=== PATIENT | male | born 1985 | race Caucasian/White ===

== ENCOUNTER 2017-09-23 04:36 | Emergency (ER) | payer OTHER, SELFPAY ==
[2017-09-23 04:43] VITALS: PULSE 58; RESP 20; TEMP 36.6; O2SAT 100; BMI 39.0
--- NOTE | 2017-09-23 04:48 | CT_ITS ---
CT abdomen pelvis wo con CLINICAL INDICATION: Right flank pain ITS.REASON: flank pain ORDERING PHYSICIAN: Abilio Ramos MD PATIENT AGE: 32 years COMPARISON: None TECHNIQUE: Axial images obtained with sagittal and coronal reformats. PROCEDURE: Oral Contrast: None IV Contrast: None . FINDINGS: Lung bases are clear. Fatty liver infiltration. The spleen, adrenal glands, pancreas, and gallbladder have an unremarkable unenhanced CT appearance. A 3 mm obstructing ureteral stone is present on the right at the region of the pelvic inlet 6 cm proximal to the ureterovesical junction. Since causing mild right-sided hydronephrosis and hydroureter. There is mild stranding of the right. Ureteral fat. There is a 3 mm nonobstructing stone in the lower pole the right kidney. There is a mild amount retained colonic feces in the right colon. No evidence of appendicitis or diverticulitis or intestinal obstruction or free air. No pelvic mass or abnormal fluid collection. No acute bony anomalies. IMPRESSION: 1. 3 to 4 mm obstructing right ureteral stone at the pelvic inlet in the distal one third of the right ureter with right nephrolithiasis. 2. Fatty liver Lower thorax: No acute finding ABDOMEN: Liver: No masses or biliary dilatation. Gallbladder: Nondistended. No radio opaque stones. Pancreas: No masses or peripancreatic fluid collections. Spleen: Unremarkable. Adrenals: Unremarkable Kidneys/ureters: No masses. No renal calculi. No hydronephrosis. No perinephric fluid collections. No ureteral dilatation or obvious ureteral calculi. Stomach bowel: Nondistended. No obvious mass or thickening. Appendix: No evidence of appendicitis. PELVIS: Reproductive: Unremarkable Bladder: Nondistended. No obvious stones or masses. ABDOMEN & PELVIS: Peritoneum: No abnormal fluid collections. No obvious inflammatory changes. No free air. Lymph nodes: No enlarged lymph nodes apparent. Vasculature: No evidence of abdominal aortic aneurysm. No retroperitoneal hemorrhage evident. Bones: No acute fracture IMPRESSION: Negative, no acute intra-abdominal or pelvic pathology apparent
[2017-09-23 06:17] LABS: Microscopic, Urine URINE MICROSCOPIC (MICROSCOPIC)
[2017-09-23 06:19] LABS: Appearance,Urine CLOUDY (Clear); Basophils # 0.1 K/mm3 (0-0.2); Basophils % 0.4 % (0.1-2.0); Bilirubin,Urine Negative (Negative); Blood, Urine LARGE (Negative); Color,Urine YELLOW (Yellow); Eosinophils % 0.1 % (0.1-12.0); Glucose,Urine (UA) Negative (Negative); Hemoglobin 14.6 g/dL (14.1-18.0); Ketones,Urine Negative (Negative); Leukocyte Esterase,Urine Negative (Negative); Lymphocytes # 1.6 K/mm3 (0.7-4.5); Mean Corpuscular HGB Conc 33.2 g/dL (31.8-35.4); Mean Corpuscular Hemoglobin 29.9 pg (27.0-31.2); Mean Corpuscular Volume 89.9 fl (80-94); Monocytes # 0.5 K/mm3 (0.1-1.0); Neutrophils # 11.2 K/mm3 (1.8-7.8); Neutrophils % 83.6 % (37.0-80.0); Nitrate,Urine Negative (Negative); Platelet Count 387 K/mm3 (142-424); Protein,Urine TRACE (Negative); Red Cell Distribution Width 13.2 % (11.5-17.5); Specific Gravity, Urine >= 1.030 (1.005-1.030); Urobilinogen,Urine 0.2 EU/dl (0.2); White Blood Count 13.4 K/mm3 (4.8-10.8)
[2017-09-23 06:25] LABS: Bacteria,Urine 3+ /lpf; RBC,Urine TNTC #/hpf (0-3); Squamous Epithelial Cell,Urine Occasional #/hpf (0-5)
[2017-09-23 06:30] LABS: Alanine Aminotransferase 61 U/L (12-78); Albumin Level 3.8 gm/dL (3.4-5.0); Alkaline Phosphatase 87 U/L (46-116); Amylase 37 U/L (25-125); Anion Gap 15.7 mEq/L (5-15); Aspartate Amino Transferase 19 U/L (15-37); Bilirubin,Total 0.3 mg/dL (0.2-1.0); Blood Urea Nitrogen 11 mg/dL (7-18); Calcium 8.5 mg/dL (8.5-10.1); Carbon Dioxide 24 mmol/L (21.0-32.0); Chloride 102 mmol/L (98-107); Creatinine Clearance Estimated 175 mL/min (0-300); Creatinine,Serum 1.09 mg/dL (0.70-1.30); Estimated Glomerular Filt Rate 78 ml/min (>60); GFR (African American) 95 ML/MIN (>60); Globulin 3.7 gm/dl (1.3-3.2); Glucose 142 mg/dL (74-106); Lipase 129 u/L (73-393); Potassium 3.7 mmoL/L (3.5-5.1); Sodium 138 mmol/L (136-145); Total Protein,Serum 7.5 gm/dL (6.4-8.2)
--- NOTE | 2017-09-23 06:35 | [facility].EDBACK ---
ED Disposition Clinical Impression: Renal colic, Kidney stone on right side Disposition: Home, Self-Care Condition on Discharge: Good Instructions: DI for Low Back Pain Additional Instructions: Please drink plenty of fluids take the pain medications as directed, follow-up with 1 of the local neurologists (Dr. Rankin with Dr. Addison) within the next couple of days. Prescriptions: Hydrocodone/Acetaminophen [Lortab 10/325mg tablet] 1 tab PO Q6HP PRN #8 tab PRN Reason: Moderate Pain Tamsulosin HCl [Flomax 0.4mg capsule] 0.4 mg PO DAILY #30 cap.er.24h Referrals: Romulo Addison MD [Physician] - Alvaro Rankin MD [Physician] - Time of Disposition: 06:35 - Critical Care Critical Care Time: No Attestation: On 09/23/17, the high probability of a clinically significant, sudden or life threatening deterioration of the following system(s) required my full and direct attention, intervention and personal management. The time I documented below is in addition to time spent performing reported procedures but includes the following listed in this critical care notation. Medical Decision Making - Medical Records Medical records reviewed: Yes: I reviewed the patient's medical records. Vital Signs: 09/23/17 04:43 Temperature 98 F Temperature Source Oral Pulse Rate [Brachial] 58 L Respiratory Rate 20 02 Sat by Pulse Oximetry 100 Oxygen Delivery Method Room Air - Lab Data Lab results reviewed: Yes: I reviewed the patient's lab results. Lab Results 09/23/17 05:00: Urine Color Yellow, Urine Appearance Cloudy, Urine pH 6.0, Ur Specific [place] >= 1.030, Urine Protein Trace, Urine Glucose (UA) Negative, Urine Ketones Negative, Urine Blood Large, Urine Nitrate Negative, Urine Bilirubin Negative, Urine Urobilinogen 0.2, Ur Leukocyte Esterase Negative, Urine RBC Tntc, Urine WBC 10-20, Ur Squamous Epith Cells Occasional, Urine Bacteria 3+ 09/23/17 05:00: WBC 13.4 H, RBC 4.90, Hgb 14.6, Hct 44.0, MCV 89.9, MCH 29.9, MCHC 33.2, RDW 13.2, Plt Count 387, MPV 8.0, Neut % (Auto) 83.6 H, Lymph % (Auto) 12.0, [place] % (Auto) 4.0, Eos % (Auto) 0.1, Baso % (Auto) 0.4, Neut # (Auto) 11.2 H, Lymph # (Auto) 1.6, [place] # (Auto) 0.5, Eos # (Auto) 0.0, Baso # (Auto) 0.1 09/23/17 05:00: Sodium 138, Potassium 3.7, Chloride 102, Carbon Dioxide 24, Anion Gap 15.7 H, BUN 11, Creatinine 1.09, Estimated Creat Clear 175, Estimated GFR 78, Est GFR ( Amer) 95, Glucose 142 H, Calcium 8.5, Total Bilirubin 0.3, AST 19, ALT 61, Alkaline Phosphatase 87, Total Protein 7.5, Albumin 3.8, Globulin 3.7 H, Albumin/Globulin Ratio 1.0 L, Amylase 37, Lipase 129 Result diagrams: 09/23/17 05:00 09/23/17 05:00 Orders (Tests/Meds): ED MEDICATIONS Discontinued Medications Generic Name Dose Route Start Last Admin Trade Name Genaroq PRN Reason Stop Dose Admin Hydromorphone HCl 1 mg 09/23/17 04:48 09/23/17 04:57 Dilaudid 2mg/Ml Syringe IV 09/23/17 04:49 1 mg ONCE ONE Administration Lactated Ringer's 1,000 mls @ 999 mls/hr 09/23/17 05:00 09/23/17 04:57 Lactated Ringer's 1000 Ml Bag IV 09/23/17 06:00 999 mls/hr .Q1H1M CHRISTOPHER Administration Ketorolac Tromethamine 30 mg 09/23/17 04:47 09/23/17 04:57 Toradol 30mg/Ml Vial IV 09/23/17 04:48 30 mg ONCE ONE Administration Ondansetron HCl 4 mg 09/23/17 04:47 09/23/17 04:57 Zofran 4mg/2ml Vial IV 09/23/17 04:48 4 mg ONCE ONE Administration - CT Data CT Scan: Abdomen, Pelvis Time Received: 06:[address] Reviewed: Yes: I have viewed the radiologist's interpretation Findings Narrative: Right UVJ junction calculus, 4 mm, with mild hydronephrosis - David Inquiry Pt receiving controlled substance: No - Reevaluation(s) Time: 06:20 Reevaluation #1: Upon reevaluation patient appears medically stable, no acute distress, advised of results obtained, need to increase fluid intake and take the pain medications prescribed as directed. Patient is to make a follow-up appointm
--- NOTE | 2017-09-23 06:38 | ED_ITS ---
ED Disposition Clinical Impression: Renal colic, Kidney stone on right side Disposition: Home, Self-Care Condition on Discharge: Good Instructions: DI for Low Back Pain Additional Instructions: Please drink plenty of fluids take the pain medications as directed, follow-up with 1 of the local neurologists (Dr. Rankin with Dr. Addison) within the next couple of days. Prescriptions: Hydrocodone/Acetaminophen [Lortab 10/325mg tablet] 1 tab PO Q6HP PRN #8 tab PRN Reason: Moderate Pain Tamsulosin HCl [Flomax 0.4mg capsule] 0.4 mg PO DAILY #30 cap.er.24h Referrals: Romulo Addison MD [Physician] - Alvaro Rankin MD [Physician] - Time of Disposition: 06:35 - Critical Care Critical Care Time: No Attestation: On 09/23/17, the high probability of a clinically significant, sudden or life threatening deterioration of the following system(s) required my full and direct attention, intervention and personal management. The time I documented below is in addition to time spent performing reported procedures but includes the following listed in this critical care notation. Medical Decision Making - Medical Records Medical records reviewed: Yes: I reviewed the patient's medical records. Vital Signs: 09/23/17 04:43 Temperature 98 F Temperature Source Oral Pulse Rate [Brachial] 58 L Respiratory Rate 20 02 Sat by Pulse Oximetry 100 Oxygen Delivery Method Room Air - Lab Data Lab results reviewed: Yes: I reviewed the patient's lab results. Lab Results 09/23/17 05:00: Urine Color Yellow, Urine Appearance Cloudy, Urine pH 6.0, Ur Specific [place] >= 1.030, Urine Protein Trace, Urine Glucose (UA) Negative, Urine Ketones Negative, Urine Blood Large, Urine Nitrate Negative, Urine Bilirubin Negative, Urine Urobilinogen 0.2, Ur Leukocyte Esterase Negative, Urine RBC Tntc, Urine WBC 10-20, Ur Squamous Epith Cells Occasional, Urine Bacteria 3+ 09/23/17 05:00: WBC 13.4 H, RBC 4.90, Hgb 14.6, Hct 44.0, MCV 89.9, MCH 29.9, MCHC 33.2, RDW 13.2, Plt Count 387, MPV 8.0, Neut % (Auto) 83.6 H, Lymph % (Auto ) 12.0, [place] % (Auto) 4.0, Eos % (Auto) 0.1, Baso % (Auto) 0.4, Neut # (Auto) 11.2 H, Lymph # (Auto) 1.6, [place] # (Auto) 0.5, Eos # (Auto) 0.0, Baso # (Auto) 0.1 09/23/17 05:00: Sodium 138, Potassium 3.7, Chloride 102, Carbon Dioxide 24, Anion Gap 15.7 H, BUN 11, Creatinine 1.09, Estimated Creat Clear 175, Estimated GFR 78, Est GFR ( Amer) 95, Glucose 142 H, Calcium 8.5, Total Bilirubin 0.3, AST 19, ALT 61, Alkaline Phosphatase 87, Total Protein 7.5, Albumin 3.8, Globulin 3.7 H, Albumin/Globulin Ratio 1.0 L, Amylase 37, Lipase 129 Result diagrams: 09/23/17 05:00 09/23/17 05:00 Orders (Tests/Meds): ED MEDICATIONS Discontinued Medications Generic Name Dose Route Start Last Admin Trade Name Genaroq PRN Reason Stop Dose Admin Hydromorphone HCl 1 mg 09/23/17 04:48 09/23/17 04:57 Dilaudid 2mg/Ml Syringe IV 09/23/17 04:49 1 mg ONCE ONE Administration Lactated Ringer's 1,000 mls @ 999 mls/hr 09/23/17 05:00 09/23/17 04:57 Lactated Ringer's 1000 Ml Bag IV 09/23/17 06:00 999 mls/hr .Q1H1M CHRISTOPHER Administration Ketorolac Tromethamine 30 mg 09/23/17 04:47 09/23/17 04:57 Toradol 30mg/Ml Vial IV 09/23/17 04:48 30 mg ONCE ONE Administration Ondansetron HCl 4 mg 09/23/17 04:47 09/23/17 04:57 Zofran 4mg/2ml Vial IV 09/23/17 04:48 4 mg ONCE ONE Administration
== END 2017-09-23 06:49 | disposition home or self-care (01) ==
PROVIDERS: Emergency Provider Emergency Medicine; PCP Nurse Practitioner Family
DX: N13.2 Hydronephrosis with renal and ureteral calculous obstruction (principal)
CPT/HCPCS: 74176; 80053; 81001; 82150; 83690; 85025; 87086; 96360; 96365; 96374; 96375; 99283; J2405

== ENCOUNTER → 2017-09-29 10:32 | Outpatient (CLI) | payer OTHER, SELFPAY ==
--- NOTE | 2017-09-29 10:39 | XR_ITS ---
XR [facility]UB CLINICAL INDICATION: Follow-up kidney stone ITS.REASON: KIDNEY STONE ORDERING PHYSICIAN: Alvaro Rankin MD PATIENT AGE: 32 years COMPARISON: CT scan 09/23/2017 FINDINGS: Previously noted stone at the pelvic inlet on the right is no longer apparent. No obvious renal or ureteral calculi. Unremarkable bowel gas pattern IMPRESSION: Previously noted right ureteral stone no longer apparent
[2017-10-11 14:15] LABS: Size 4x3x3 mm (.)
[2017-10-12 18:15] LABS: Specimen Type Comment: (.)
== END ==
PROVIDERS: PCP Internal Medicine Adolescent Medicine; Visit Provider Urology
DX: N20.0 Calculus of kidney (principal)
CPT/HCPCS: 74018; 82370

== ENCOUNTER → 2017-12-21 05:02 | Outpatient (CLI) | payer OTHER, SELFPAY ==
[2017-12-21 06:41] LABS: Basophils # 0.1 K/mm3 (0-0.2); Basophils % 0.6 % (0.1-2.0); Eosinophils # 0.1 K/mm3 (0.0-0.4); Eosinophils % 1.2 % (0.1-12.0); Hematocrit 46.7 % (42.0-52.0); Hemoglobin 15.6 g/dL (14.1-18.0); Lymphocytes # 2.8 K/mm3 (0.7-4.5); Lymphocytes % 36.1 K/mm3 (10-50); Mean Corpuscular HGB Conc 33.3 g/dL (31.8-35.4); Mean Corpuscular Hemoglobin 30.5 pg (27.0-31.2); Mean Corpuscular Volume 91.5 fl (80-94); Mean Platelet Volume 7.6 fl (7.4-10.4); Monocytes # 0.5 K/mm3 (0.1-1.0); Monocytes % 6.7 % (1.7-9.3); Neutrophils # 4.2 K/mm3 (1.8-7.8); Neutrophils % 55.4 % (37.0-80.0); Platelet Count 346 K/mm3 (142-424); Red Blood Count 5.11 M/mm3 (4.60-6.20); Red Cell Distribution Width 13.6 % (11.5-17.5); White Blood Count 7.7 K/mm3 (4.8-10.8)
[2017-12-21 07:46] LABS: Alanine Aminotransferase 86 U/L (12-78); Albumin Level 4.1 gm/dL (3.4-5.0); Albumin/Globulin Ratio 1.2 (1.1-1.8); Alkaline Phosphatase 68 U/L (46-116); Anion Gap 13.4 mEq/L (5-15); Aspartate Amino Transferase 32 U/L (15-37); Bilirubin,Total 0.5 mg/dL (0.2-1.0); Blood Urea Nitrogen 16 mg/dL (7-18); Calcium 9.5 mg/dL (8.5-10.1); Carbon Dioxide 26 mmol/L (21.0-32.0); Chloride 103 mmol/L (98-107); Cholesterol 216 mg/dL (140-200); Estimated Glomerular Filt Rate 112 ml/min (>60); GFR (African American) 136 ML/MIN (>60); Globulin 3.4 gm/dl (1.3-3.2); Glucose 105 mg/dL (74-106); HDL Cholesterol 43 mg/dL (27-67); LDL Cholesterol 116 mg/dL (0-130); Potassium 4.4 mmoL/L (3.5-5.1); Sodium 138 mmol/L (136-145); Thyroid Stimulating Hormone 4.44 uIU/ml (0.358-3.740); Total Protein,Serum 7.5 gm/dL (6.4-8.2); Triglycerides 284 mg/dL (30-200); VLDL Cholesterol 57 mg/dL (0-40)
[2017-12-23 10:46] LABS: Testosterone,Total 210 ng/dL (264-916); Vitamin B12 306 pg/mL (232-1245); Vitamin D 25 Hydroxy 16.1 ng/mL (30.0-100.0)
== END ==
PROVIDERS: Visit Provider Internal Medicine Adolescent Medicine
DX: R53.83 Other fatigue (principal); I10 Essential (primary) hypertension
CPT/HCPCS: 36415; 80053; 80061; 82607; 82652; 84403; 84443; 85025

== ENCOUNTER → 2018-02-21 05:07 | Outpatient (CLI) | payer OTHER, SELFPAY ==
[2018-02-21 06:21] LABS: Basophils % 0.6 % (0.1-2.0); Eosinophils # 0.1 K/mm3 (0.0-0.4); Eosinophils % 1.3 % (0.1-12.0); Hematocrit 45.4 % (42.0-52.0); Hemoglobin 14.4 g/dL (14.1-18.0); Lymphocytes # 2.5 K/mm3 (0.7-4.5); Lymphocytes % 38.5 K/mm3 (10-50); Mean Corpuscular HGB Conc 31.7 g/dL (31.8-35.4); Mean Corpuscular Hemoglobin 29.3 pg (27.0-31.2); Mean Corpuscular Volume 92.2 fl (80-94); Mean Platelet Volume 7.4 fl (7.4-10.4); Monocytes # 0.4 K/mm3 (0.1-1.0); Monocytes % 6.5 % (1.7-9.3); Neutrophils # 3.4 K/mm3 (1.8-7.8); Neutrophils % 53.2 % (37.0-80.0); Platelet Count 311 K/mm3 (142-424); Red Blood Count 4.92 M/mm3 (4.60-6.20); Red Cell Distribution Width 13.4 % (11.5-17.5); White Blood Count 6.4 K/mm3 (4.8-10.8)
[2018-02-21 07:48] LABS: Alanine Aminotransferase 59 U/L (12-78); Albumin Level 3.8 gm/dL (3.4-5.0); Albumin/Globulin Ratio 1.3 (1.1-1.8); Alkaline Phosphatase 59 U/L (46-116); Anion Gap 13.6 mEq/L (5-15); Aspartate Amino Transferase 21 U/L (15-37); Bilirubin,Total 0.3 mg/dL (0.2-1.0); Blood Urea Nitrogen 14 mg/dL (7-18); Calcium 9.1 mg/dL (8.5-10.1); Carbon Dioxide 27 mmol/L (21.0-32.0); Chloride 104 mmol/L (98-107); Chol/HDL Ratio 4.9 (1-3.5); Cholesterol 204 mg/dL (140-200); Creatinine,Serum 0.93 mg/dL (0.70-1.30); Estimated Glomerular Filt Rate 94 ml/min (>60); GFR (African American) 114 ML/MIN (>60); Glucose 109 mg/dL (74-106); HDL Cholesterol 42 mg/dL (27-67); LDL Cholesterol 126 mg/dL (0-130); Potassium 4.6 mmoL/L (3.5-5.1); Sodium 140 mmol/L (136-145); Thyroid Stimulating Hormone 5.39 uIU/ml (0.358-3.740); Total Protein,Serum 6.8 gm/dL (6.4-8.2); Triglycerides 182 mg/dL (30-200); VLDL Cholesterol 36 mg/dL (0-40)
[2018-02-22 09:18] LABS: Hep A Ab, IgM Negative (Negative); Hepatitis B Core Antibody IgM Negative (Negative); Hepatitis B Surface Antigen Negative (Negative)
[2018-02-23 06:19] LABS: Hepatitis C Antibody <0.1 s/co ratio (0.0-0.9); Testosterone,Total 225 ng/dL (264-916); Vitamin B12 1696 pg/mL (232-1245)
== END ==
PROVIDERS: Visit Provider Internal Medicine Adolescent Medicine
DX: I10 Essential (primary) hypertension (principal); R53.83 Other fatigue; R74.8 Abnormal levels of other serum enzymes
CPT/HCPCS: 36415; 80053; 80061; 80074; 82607; 82652; 84403; 84443; 85025

== ENCOUNTER → 2018-03-03 15:22 | Outpatient (CLI) | payer OTHER, SELFPAY | PROVIDERS: PCP Internal Medicine Adolescent Medicine; Visit Provider Nurse Practitioner Family | DX: R40.0 Somnolence (principal) | CPT/HCPCS: 95806 ==

== ENCOUNTER → 2018-05-05 07:55 | Outpatient (CLI) | payer OTHER, SELFPAY ==
[2018-05-05 13:28] LABS: Free Thyroxine Index 3.6 ug/dL (5.93-13.13); T4 (Thyroxine) 8.5 ug/dl (4.7-13.3); Thyroid Stimulating Hormone 2.97 uIU/ml (0.358-3.740); Triiodothryronine (T3) Uptake 42 % (31-39)
[2018-05-06 20:27] LABS: Testosterone,Total 276 ng/dL (264-916)
== END ==
PROVIDERS: PCP Nurse Practitioner Family; Visit Provider Nurse Practitioner Family
DX: R79.89 Other specified abnormal findings of blood chemistry (principal); R53.83 Other fatigue
CPT/HCPCS: 36415; 84403; 84436; 84443; 84479